=== PATIENT | female | born 1955 | race Caucasian/White ===

== ENCOUNTER 2024-10-19 16:12 | Outpatient (AMB) | payer BC, SELFPAY ==
--- OUTSIDE RECORDS SUMMARY | 2024-10-19 18:46 | XMS_ITS | Patient Health Record ---
Author Organization 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 . . 2-3x/week; Durat ion: 3-4 weeks 06/16/2018 Active OT Refurbishment Refurbish with full length extensions 06/16/2018 Active Myrbetriq 25 MG 1 tablet Orally Once a day Active hydroCHLOROthiazide Active Simvastatin 10 MG 1 tablet in the evening Orally Active metFORMIN HCl Active Vitamin C Active Multivitamin Active Calcium Active Magnesium Active Probiotic Active Fish Oil Active Immunizations Vaccine Route Administration Date Status Comme nts Influenza Unknown 01/03/2018 Administered Social History Tobacco Use: Social History Observation Description Date Details (start date - stop date) Former Smoker NA - NA Tobacco Use/Smoking Question Answer Notes Are you a: former smoker When did you stop smoking? 1988 Additional Findings: Tobacco Non-User Cu rrent non-smoker,Ex-light cigarette smoker (1-9/day) Alcohol Screen Question Answer Notes Did you have a drink containing alcohol in the p ast year? No Points 0 Interpretation Negative Tobacco use other than smoking: Question Answer Notes Are you an other tobacco user? No Problems Problem Type SNOMED Code ICD Code Onset Dates Problem Status W/U Status Risk Notes Problem Neuropathy (124465930) Neuropathy (G62.9) Active confirmed Problem Polyneuropathy due to type 2 diabetes mellitus (007120740) Type 2 diabetes mellitus with polyneuropathy (E11.42) Active confirmed Plan Of Treatment Pending Test Test Name Order Date X ray : Foot, right 3V 06/16/2018 Insurance Providers Payer Name Payer Address Payer Phone Subscriber Number Group Number Insured Name Patient Relationship to Insured Coverage Start Date Coverage End Date [id number] [place] [phone] [id number] Marely Kent Self - patient is the insured Medical (General) History Medical History History ICD Code CAD (Cholesterol) Cancer type II diabetes High blood pressure keloids Chicken pox Bone implants/screws Transfusions Surgical History Surgery Date(Month/Year) bunionectomy 12/25/17 mastectomy 2005 shoulder tear 2014 knee surgery 2014 transflap 2004
== END 2024-10-19 16:13 | disposition home or self-care (01) ==
LOC: HO.HMGAL 16:12
PROVIDERS: PCP Physician Assistant; Visit Provider Registered Nurse Emergency
DX: J30.89 Other allergic rhinitis (principal)
CPT/HCPCS: 95117; 95165

== ENCOUNTER 2024-11-18 15:57 | Outpatient (AMB) | payer BC, SELFPAY | END 2024-11-18 15:58 | disposition home or self-care (01) | LOC: HO.HMGAL 15:57 | PROVIDERS: PCP Physician Assistant; Visit Provider Registered Nurse Emergency | DX: J30.89 Other allergic rhinitis (principal) | CPT/HCPCS: 95117; 95165 ==

== ENCOUNTER 2024-12-07 13:26 | Outpatient (AMB) | payer BC, SELFPAY ==
--- OUTSIDE RECORDS SUMMARY | 2024-12-07 17:05 | XMS_ITS | Patient Health Record ---
[facility] Address [address] [place] [address] Care Team Providers Care Industrial Ecology Technician Name Role Phone Monica Tavares Primary Care Provider Jillian Knight Unavailable [phone] Allergies Allergen (clinical drug ingredient) Drug/Non Drug [...] Status W/U Status Risk Notes Problem Neuropathy (801615624) Neuropathy (G62.9) Active confirmed Problem Polyneuropathy due to type 2 diabetes mellitus (161083137) Type 2 diabetes mellitus with polyneuropathy (E11.42) Active confirmed Plan Of Treatment Pending Test Test Name Order Date X ray : Foot, right 3V 06/16/2018 Insurance Providers Payer Name Payer Address Payer Phone Subscriber Number Group Number Insured Name Patient Relationship to Insured Coverage Start Date Coverage End Date [address] [place] [phone] [id number] Marely Kent Self - patient is the insured Medical (General) History Medical History History ICD Code CAD (Cholesterol) Cancer type II diabetes High blood pressure keloids Chicken pox Bone implants/screws Transfusions Surgical History Surgery Date(Month/Year) bunionectomy 12/25/17 mastectomy 2005 shoulder tear 2014 knee surgery 2014 transflap 2004
== END 2024-12-07 13:27 | disposition home or self-care (01) ==
LOC: HO.HMGAL 13:26
PROVIDERS: PCP Physician Assistant; Visit Provider Registered Nurse Emergency
DX: J30.89 Other allergic rhinitis (principal)
CPT/HCPCS: 95117; 95165

== ENCOUNTER 2024-12-28 16:18 | Outpatient (AMB) | payer BC, SELFPAY ==
--- OUTSIDE RECORDS SUMMARY | 2024-12-29 07:06 | XMS_ITS | Data Portability ---
Author Organization [place] - [facility], [facility] Address [facility] [place] [address] Care Team Providers Care Veneer Measurer Name Role Phone PAULINE LAYTON Primary Care Provider Assessment Encounter Date Assessment Date Assessment LastModified by Organization Details LastModified Time 03/28/2019 03/28/2019 Overview/History : 63 yo female new to and this provider who presents with complain of flu-like symptoms for 1 week. Symptoms include fever, chills, nasal congestion, and cough. Patient was seen by her PCP when symptoms first started and was told her symptoms are due to viral infection; few days later patient wass seen by her ENT doctor and was prescribed cefdinire for sinusitis, she is currently taking this medication; patient was then seen at the local urgent care and tested positive for influenza type B. Patient reports that overall her symptoms are improving but didn't completely resolve; she is seeking evaluation today as she is concerned the her cold might be turning into something else . Patient reports taking tylenol and motrin for fever. Comorbidities: breast CA; diabetes, HTN, HLD, Exam: middle age female, who appears tired but otherwise well, no acute distress, non-toxic appearance; alert and oriented X3 ambulates independently without difficulty; afebrile at the time of evaluation Mucous membranes are pink and moist without lesions; Oropharynx without erythema or exudate. Nasal mucosa is pink and moist; nasal passages are patent bilaterally; ear canals are clear without erythema or discharge bilaterally; TMs are pearly shore, non-bulging, non-erythematous Heart sounds are regular rate and rhythm; no audible murmurs, rubs, or gallops No signs of respiratory distress. Lungs are clear to auscultation in all fileds No edema, erythema or cyanosis of lower extremities DDx considered, but not limited to: diagnosed with Influenza type B and sinusitis X1wk Bacteremia - reports fever and chills; symptoms, however, are improving; will need further evaluation if symptoms persist Pneumonia - unlikely; lungs are clear to auscultation; currently taking Cefdinire Sepsis - unlikely; negative qSOFA Endocarditis - unlikely at this time; but might be considered for evaluation if fever/chills do not resolve within 7-10d Work up/Results: CBC CMP Plan/Discussion: - discussed patient's concerns about her recovery; advised it may take up to 2 weeks to recover from flu and cocurrent bacterial sinusitis; advised rest and proper hydration; continue tylenol/motrin PRN for fever; complete abx as prescribed - will notify about abnormal findings if any noted - follow up with PCP as needed within 3-5 days or sooner if symptoms worsen or do not improve - advised when to seek immediate medical attention/911/ED - patient expressed understanding and agreed to tx plan In order to obtain further information and compare any laboratory results/values, I have accessed patient records on the [facility]. This information was pertinent in my medical decision making today. Time On Scene with Patient: 00:39:10 [email or web address] Not available 03/28/2019 22:58:17 Plan of Treatment Reminders Order Date Submit Date Provider Last Modified By Organization Details Last Modified Time Details Appointments None recorded . Lab CBC w/ auto diff 020 03/28/19 20 [facility] (Centralized Electronic Ordering - All Locations), Patient Can Go To The Location Of Their Choice, [id number] 20:31:01 CMP, serum or plasma 020 03/28/19 20 [facility] (Centralized Electronic Ordering - All Locations), Patient Can Go To The Location Of Their Choice, [id number] 0 19:33:05 Referral None recorded . Procedures None recorded . Surgeries None recorded . Imaging None recorded . Medication Orders None recorded . Patient TargetsNo targets recorded. Patient Instructions Encounter Date Encounter Id Patient Instructions Last Modified By Organization Details Last Modified Time 03/28/2019 [id number] Influenza Discha rge Instructions Basic Information Influenza is a viral infection of the nose, throat and lungs. It usually comes on suddenly. The most common symptoms are chills, headache, fever, sore throat, dry cough, body aches, weakness and fatigue. Occasionally, people will have vomiting and diarrhea. Influenza is spread when droplets from an infected person are coughed or sneezed into the air, allowing healthy persons to breathe in these fine droplets and become infected. A patient with influenza will have millions of flu viruses contaminating their hands and face as well. The influenza virus can live up for 2 days on objects such as door knobs, grocery cart handles, elevator buttons, telephones, table tops etc. It is highly contagious. In addition, symptoms of influenza do not start until 2 days after the virus enters the body, so an infected person is contagious before they know that they are sick. A flu patient remains contagious for 24 hours after fever ends. Since it is a virus, antibiotics do not help. Instructions Medications: -Ibuprofen (or other non steroidal antiinflammatory drugs) and Tylenol are very important to help with the body aches and fever. People with influenza will often run high fevers for 5 days straight. High fevers are a major cause of dehydration in influenza, so trying to control fever is very important. Be sure to carefully read the bottles for the correct dosing (especially in children) instructions. -Nausea medicine may be prescribed: use as directed -Antiviral medicine may be prescribed. It is important to know that although these medicines are advertised to shorten the course of influenza, studies show that they reduce length of symptoms by only about a day in adults and 1 day in children. Your provider will discuss whether this medicine is recommended for you. If it is prescribed, be sure to take the entire course as written. Self Care: -Oral hydration. Drink plenty of fluids to stay hydrated. Fever itself can make you dehydrated so you really need to stay on top of this. Fluids such as broth and gatorade are recommended. -Solid food. You will very likely have a poor appetite for solid food: this is OK and as long as you can continue to take plenty of fluids, do not worry if you do not take solid food for a few days. -Rest. Get plenty of rest. Do not push yourself to do more than your body is telling you as this can make you sicker. -Prevent spread of the influenza. Cover your mouth and nose when you cough and sneeze. Try to maintain a 6 foot distance from others. Consider wearing a surgical mask, especially around family members who may have chronic illnesses. Wash your hands often. Don t leave dirty tissues around the home. Seek Care Immediately if you -develop very rapid breathing or shortness of breath -become pale -pass out -cannot tolerate liquids by mouth -develop chest pain -become confused -develop rash If you have additional concerns or develop a change in your condition between 8am-10pm, please call [facility] at [phone] to help navigate your care. [email or web address] Not available 03/28/2019 17:06:39 Reason for Referral None Reported. Results Created Date Observation Date Name Description Value Unit Range Abnormal Flag Note LastModifiedBy Organization Detail LastModifiedTime 03/28/1903/28/2019 CMP, serum or plasm a glucose 117 mg/dL (70-99 ) high Not Available [facility] (Centralized Electronic Ordering - All Locations) Patient Can Go To The Location Of Their Choice, 03/28/2019 19:33:05 03/28/1903/28/2019 CMP, serum or plasm a BUN 16 mg/dL (8-23) Not Available [facility] (Centralized Electronic Ordering - All Locations) Patient Can Go To The Location Of Their Choice, 03/28/2019 19:33:05 03/28/1903/28/2019 CMP, serum or plasm a creatinine 0.6 mg/dL (0.5-1 .0) Not Available [facility] (Centralized Electronic Ordering - All Locations) Patient Can Go To The Location Of Their Choice, 03/28/2019 19:33:05 03/28/1903/28/2019 CMP, serum or plasm a sodium 141 mmol/ L (133-1 45) Not Available [facility] (Centralized Electronic Ordering - All Locations) Patient Can Go To The Location Of Their Choice, 03/28/2019 19:33:05 03/28/1903/28/2019 CMP, serum or plasm a potassium 3.9 mmol/ L (3.6-5 .2) Not Available [facility] (Centralized Electronic Ordering - All Locations) Patient Can Go To The Location Of Their Choice, 03/28/2019 19:33:05 03/28/1903/28/2019 CMP, serum or plasm a chloride 98 mmol/ L (98-10 7) Not Available [facility] (Centralized Electronic Ordering - All Locations) Patient Can Go To The Location Of Their Choice, 03/28/2019 19:33:03/28/1903/28/2019 CMP, serum or plasm a bicarbonate 25 mmol/ L (22-29 ) Not Available [facility] (Centralized Electronic Ordering - All Locations) Patient Can Go To The Location Of Their Choice, 03/28/2019 19:33:03/28/1903/28/2019 CMP, serum or plasm a anion gap 18 (4-17) high Not Available [facility] (Centralized Electronic Ordering - All Locations) Patient Can Go To The Location Of Their Choice, 03/28/2019 19:33:03/28/1903/28/2019 CMP, serum or plasm a albumin 4.4 gm/dL (3.4-4 .8) Not Available [facility] (Centralized Electronic Ordering - All Locations) Patient Can Go To The Location Of Their Choice, 03/28/2019 19:33:03/28/1903/28/2019 CMP, serum or plasm a calcium 10.3 mg/dL (8.6-1 0.5) VICKY CHAU CALCI UM LEVEL S SHOUL D BE BERNICE CHAU ON A DAY CLINI AMANDO INDIC ATED. Not Available [facility] (Centralized Electronic Ordering - All Locations) Patient Can Go To The Location Of Their Choice, 03/28/2019 19:33:03/28/1903/28/2019 CMP, serum or plasm a bilirubin,to lauren 0.5 mg/dL (0-1.2 ) Not Available [facility] (Centralized Electronic Ordering - All Locations) Patient Can Go To The Location Of Their Choice, 03/28/2019 19:33:03/28/1903/28/2019 CMP, serum or plasm a total protein 6.6 gm/dL (6.2-8 .2) Not Available [facility] (Centralized Electronic Ordering - All Locations) Patient Can Go To The Location Of Their Choice, 03/28/2019 19:33:05 03/28/1903/28/2019 CMP, serum or plasm a Ag ratio 2.0 Not Available [facility] (Centralized Electronic Ordering - All Locations) Patient Can Go To The Location Of Their Choice, 03/28/2019 19:33:05 03/28/1903/28/2019 CMP, serum or plasm a AST 27 U/L (0-32) Not Available [facility] (Centralized Electronic Ordering - All Locations) Patient Can Go To The Location Of Their Choice, 03/28/2019 19:33:05 03/28/19 20 03/28/2019 CMP, serum or plasm a alk phos 98 U/L (35-10 4) Not Available [facility] (Centralized Electronic Ordering - All Locations) Patient Can Go To The Location Of Their Choice, 03/28/2019 19:33:03/28/19 20 03/28/2019 CMP, serum or plasm a ALT 53 U/L (0-33) high Not Available [facility] (Centralized Electronic Ordering - All Locations) Patient Can Go To The Location Of Their Choice, 03/28/2019 19:33:03/28/19 20 03/28/2019 CMP, serum or plasm a est GFR non 98 mL/mi n/1.7 3_M2 Creat inine based estim ated glome rular filtr ation rate (eGFR ) is calcu lated using the Chron ic Kidne y Disea se Epide miolo gy Colla borat ion (CKD- EPI). The CKD-E PI creat inine equat ion has not been valid ated in child joey (<18 years ), pregn ant women or in some racia l or ethni c subgr oups other than Cauca sians and Afric an Ameri cans. Not Available [facility] (Centralized Electronic Ordering - All Locations) Patient Can Go To The Location Of Their Choice, 03/28/2019 19:33:05 03/28/19 20 03/28/2019 CMP, serum or plasm a est GFR 114 mL/mi n/1.7 3_M2 Creat inine based estim ated glome rular filtr ation rate (eGFR ) is calcu lated using the Chron ic Kidne y Disea se Epide miolo gy Colla borat ion (CKD- EPI). The CKD-E PI creat inine equat ion has not been valid ated in child joey (<18 years ), pregn ant women or in some racia l or ethni c subgr oups other than [place] and Afric an Ameri cans. Not Available [facility] (Centralized Electronic Ordering - All Locations) Patient Can Go To The Location Of Their Choice, 03/28/2019 19:33:05 03/28/1903/28/2019 CBC w/ auto diff WBC 11.3 K/mm3 (4.0-1 1.0) high Not Available [facility] (Centralized Electronic Ordering - All Locations) Patient Can Go To The Location Of Their Choice, 03/28/2019 20:31:03/28/1903/28/2019 CBC w/ auto diff RBC 5.31 M/mm3 (4.20- 5.40) Not Available [facility] (Centralized Electronic Ordering - All Locations) Patient Can Go To The Location Of Their Choice, 03/28/2019 20:31:03/28/1903/28/2019 CBC w/ auto diff HGB 15.4 gm/dL (11.7- 15.5) Not Available [facility] (Centralized Electronic Ordering - All Locations) Patient Can Go To The Location Of Their Choice, 03/28/2019 20:31:03/28/1903/28/2019 CBC w/ auto diff HCT 45.4 % (35.7- 45.8) Not Available [facility] (Centralized Electronic Ordering - All Locations) Patient Can Go To The Location Of Their Choice, 03/28/2019 20:31:03/28/1903/28/2019 CBC w/ auto diff MCV 85.5 fL (80.0- 100.0) Not Available [facility] (Centralized Electronic Ordering - All Locations) Patient Can Go To The Location Of Their Choice, 03/28/2019 20:31:03/28/1903/28/2019 CBC w/ auto diff MCH 29.0 pg (27.0- 34.0) Not Available [facility] (Centralized Electronic Ordering - All Locations) Patient Can Go To The Location Of Their Choice, 03/28/2019 20:31:03/28/1903/28/2019 CBC w/ auto diff MCHC 33.9 g/dL (33.0- 37.0) Not Available [facility] (Centralized Electronic Ordering - All Locations) Patient Can Go To The Location Of Their Choice, 03/28/2019 20::03/28/1903/28/2019 CBC w/ auto diff plt 300 K/mm3 (150-4 60) Not Available [facility] (Centralized Electronic Ordering - All Locations) Patient Can Go To The Location Of Their Choice, 03/28/2019 20::03/28/1903/28/2019 CBC w/ auto diff RDW-SD 39.7 fL (<47.0 ) Not Available [facility] (Centralized Electronic Ordering - All Locations) Patient Can Go To The Location Of Their Choice, 03/28/2019 20::03/28/1903/28/2019 CBC w/ auto diff MPV 9.6 fL (9.4-1 2.4) Not Available [facility] (Centralized Electronic Ordering - All Locations) Patient Can Go To The Location Of Their Choice, 03/28/2019 20::03/28/1903/28/2019 CBC w/ auto diff automated NRBC 0.0 #/100 _WBC' s Not Available [facility] (Centralized Electronic Ordering - All Locations) Patient Can Go To The Location Of Their Choice, 03/28/2019 20::03/28/1903/28/2019 CBC w/ auto diff abs. NRBC 0.0 K/mm3 Not Available [facility] (Centralized Electronic Ordering - All Locations) Patient Can Go To The Location Of Their Choice, 03/28/2019 20::03/28/1903/28/2019 CBC w/ auto diff neut # 6.4 K/mm3 (1.3-7 .0) Not Available [facility] (Centralized Electronic Ordering - All Locations) Patient Can Go To The Location Of Their Choice, 03/28/2019 20::03/28/1903/28/2019 CBC w/ auto diff lymph # 3.1 K/mm3 (0.8-3 .1) Not Available [facility] (Centralized Electronic Ordering - All Locations) Patient Can Go To The Location Of Their Choice, 03/28/2019 20::03/28/192020 CBC w/ auto diff mono# 0.9 K/mm3 (0.4-0 .9) Not Available [facility] (Centralized Electronic Ordering - All Locations) Patient Can Go To The Location Of Their Choice, 03/28/2019 20:31:03/28/1903/28/2019 CBC w/ auto diff eo # 0.2 K/mm3 (0.0-0 .4) Not Available [facility] (Centralized Electronic Ordering - All Locations) Patient Can Go To The Location Of Their Choice, 03/28/2019 20:31:03/28/1903/28/2019 CBC w/ auto diff baso # 0.1 K/mm3 (0.0-0 .1) Not Available [facility] (Centralized Electronic Ordering - All Locations) Patient Can Go To The Location Of Their Choice, 03/28/2019 20:31:03/28/1903/28/2019 CBC w/ auto diff abs. imm gran 0.6 K/mm3 Not Available [facility] ([facility] Ordering - All Locations) Patient Can Go To The Location Of Their Choice, 03/28/2019 20:31:03/28/1903/28/2019 CBC w/ auto diff neut 56.9 % (44-76 ) Lavonne jang rmed Not Available [facility] (Centralized Electronic Ordering - All Locations) Patient Can Go To The Location Of Their Choice, 03/28/2019 20::03/28/1903/28/2019 CBC w/ auto diff lymph 27.6 % (15-43 ) Not Available [facility] (Centralized Electronic Ordering - All Locations) Patient Can Go To The Location Of Their Choice, 03/28/2019 20:31:03/28/1903/28/2019 CBC w/ auto diff monocyte 7.8 % (4.5-1 0.5) Not Available [facility] (Centralized Electronic Ordering - All Locations) Patient Can Go To The Location Of Their Choice, 03/28/2019 20:31:03/28/1903/28/2019 CBC w/ auto diff eo 1.9 % (0-6) Not Available [facility] (Centralized Electronic Ordering - All Locations) Patient Can Go To The Location Of Their Choice, [id number] 03/28/2019 20:31:01 03/28/19 20 03/28/2019 CBC w/ auto diff baso 0.7 % (0-2) Not Available [facility] (Centralized Electronic Ordering - All Locations) Patient Can Go To The Location Of Their Choice, [id number] 03/28/2019 20:31:01 03/28/19 20 03/28/2019 CBC w/ auto diff imm gran 5.1 % Not Available [facility] (Centralized Electronic Ordering - All Locations) Patient Can Go To The Location Of Their Choice, [id number] 03/28/2019 20:31:01 Result Notes None recorded. Medical Equipment None Reported. Allergies Allergen ID Allergen Name Allergen Category Reaction Reaction Severity Criticality Documentation Date Start Date Code Code System Note Provider Name and Address Organization Details Recorded Time 52168 Substance with sulfonami de structure and antibacte rial mechanism of action (substanc e) medicatio n Not available Not available Not available 03/28/2019 61583 8003 SNOMED [facility] [address] [place], [address], [place] [facility] 0 16:48:12 Medications Name Sig Start Date Stop Date Status Note LastModified by Organization Details LastModified Time cefdinir active Not Available Not Avai lable Not Available simvastatin active Not Available Not A vailable Not Available lisinopril active Not Available Not Av ailable Not Available metformin active Not Available Not Rosa Maria ilable Not Available Hctz/Reserpine /Hydralazine active Not Available Not Available Not Available Vitals Date Recorded Respiratory rate Heart rate Oxygen saturation Oxygen saturation in Arterial blood by Pulse oximetry Body temperature Systolic And Diastolic Provider Name and Address Organization Details Last Updated DateTime 0 18 /min 92 /min 100 % 100 % 98.7 [degF] 122/78 mm[Hg] Not Available [facility] 0 16:53:50 Social History Question Answer Notes LastModified by Organizat ion Details LastModified Time Tobacco Smoking Status Never Smoker [facility] [address] [place], [address], [place] [facility] 03/28/2019 17:06:45 Do You Have An Advance Directive? No Information not available 03/28/2019 What Is Your Code Status? Full Code Information not available 03/28/2019 Excessive Alcohol Or Drug Use No Information not available 03/28/2019 Sex: Unknown Functional Status None recorded. Mental Status None recorded. Family History Relationship Description Onset Age of this Age Resolved Age Notes LastModified by Organization Details LastModified Time Father Hypertensive disorder [email or web address] Not available 2019 17:07:15 Medical History Condition Response Coronary Artery Disease N Depression N COPD N Diabetes Y Cancer Y Stroke N Asthma N High Cholesterol Y Pulmonary Embolism N Hypertension Y Kidney Disease N Gynecological HistoryNo gynecological history recorded. Obstetrics History GPAL:G 0 P 0 0 0 0 Past Encounters Encounter ID Performer Location Encounter Start Date Encounter Closed Date Diagnosis/Indication Diagnosis SNOMED-CT Code Diagnosis ICD10 Code Diagnosis IMO Codes Diagnosis Note [id number] [facility] [address] [place] [address] 03/28/2019 16:47:01 03/31/2019 12:23:06 Malaise and fatigue 086342004 R53.81 Influenza caused by Influenza B virus 76865721 J10.1 Sinusitis 45105511 J32.9 currently treated with abx Health Concerns Section Related Observation LastModified by Organization Detai ls LastModified Time None Recorded Concern Status LastModified by Organization Details LastModified Time None Recorded Advance Directives Directive N: Payers Insurance Date Sequence Insurance Name Policy Number Policy Rosario Covered Member ID Rosario Member ID Guarantor Name 03/31/2019 1 [facility] (HMO) Marely Yoli [id number] Marely Yoli 03/28/2019 1 *SELF PAY* Marely Yoli [id number] Marely Yoli 03/28/2019 1 [facility] Marely Yoli [id number] Marely Yoli 04/09/2019 1 [facility] [employer] [facility] [id number] Marely Yoli [id number] Marely Yoli 04/09/2019 1 [facility] [id number] Marely Yoli [id number] 1 Marely Yoli 04/08/2019 1 [facility] [id number] Marely Yoli [id number] 1 Marely Kent Notes Date Note Type Note Provider Name and Address Organization Details Recorded Time 03/28/2019 text/html Mrs. Kent is a 63 yo female new to and this provider who presents with complain of flu-like symptoms for 1 week. Symptoms include fever, chills, nasal congestion, and cough. Patient was seen by her PCP when symptoms first started and was told her symptoms are due to viral infection; few days later patient wass seen by her ENT doctor and was prescribed cefdinire for sinusitis, she is currently taking this medication; patient was then seen at the local urgent care and tested positive for influenza type B. Patient reports that overall her symptoms are improving but didn't completely resolve; she is seeking evaluation today as she is concerned the her cold might be turning into something else . Patient reports taking tylenol and motrin for fever. [facility] [address], [place], [address], [place] - [facility] 03/28/2019 22:58:23 OBGyn Episode No OBEpisode recorded.
== END 2024-12-28 16:19 | disposition home or self-care (01) ==
LOC: HO.HMGAL 16:18
PROVIDERS: PCP Physician Assistant; Visit Provider Registered Nurse Emergency
DX: J30.89 Other allergic rhinitis (principal)
CPT/HCPCS: 95117; 95165

== ENCOUNTER 2025-01-25 16:33 | Outpatient (AMB) | payer BC, SELFPAY ==
--- OUTSIDE RECORDS SUMMARY | 2025-01-25 22:40 | XMS_ITS | Patient Health Record ---
Author Organization [facility] Address [address] [place] [address] Care Team Providers Care Research Laboratory Manager Name Role Phone Monica Tavares Primary Care Provider Jillian Knight Unavailable [phone] Allergies Allergen (clinical drug ingredient) Drug/Non Drug [...] Status W/U Status Risk Notes Problem Neuropathy (695025026) Neuropathy (G62.9) Active confirmed Problem Polyneuropathy due to type 2 diabetes mellitus (400607829) Type 2 diabetes mellitus with polyneuropathy (E11.42) Active confirmed Plan Of Treatment Pending Test Test Name Order Date X ray : Foot, right 3V 06/16/2018 Insurance Providers Payer Name Payer Address Payer Phone Subscriber Number Group Number Insured Name Patient Relationship to Insured Coverage Start Date Coverage End Date [id number] [place] [phone] [id number] Marely Kent Self - patient is the insured Medical (General) History Medical History History ICD Code CAD (Cholesterol) Cancer type II diabetes High blood pressure keloids Chicken pox Bone implants/screws Transfusions Surgical History Surgery Date(Month/Year) bunionectomy 12/25/17 mastectomy 2005 shoulder tear 2014 knee surgery 2014 transflap 2004
--- OUTSIDE RECORDS SUMMARY | 2025-01-25 22:40 | XMS_ITS | Data Portability ---
Author Organization [place] - [facility], [facility] Address [facility] [place] [address] Care Team Providers Care Commercial Portfolio Manager Name Role Phone PAULINE LAYTON Primary Care Provider [phone] Assessment Encounter Date Assessment Date Assessment LastModified [...] CBC w/ auto diff 020 03/28/19 20 [place] [facility] (Centralized Electronic Ordering - All Locations), Patient Can Go To The Location Of Their Choice, [id number] 0 20:31:01 CMP, serum or plasma 020 03/28/19 20 [place] [facility] (Centralized Electronic Ordering - All Locations), Patient Can Go To The Location Of Their Choice, [id number] 0 19:33:05 Referral None recorded . Procedures None recorded . Surgeries None recorded . Imaging None recorded . Medication Orders None recorded . Patient TargetsNo targets recorded. Patient Instructions Encounter Date Encounter Id Patient Instructions Last Modified By Organization Details Last Modified Time 03/28/2019 [id number] Influenza Discha rge Instructions Basic Information Influenza [...] condition between 8am-10pm, please call [facility] at [phone] to help navigate your care. marixa Not [...] Go To The Location Of Their Choice, [id number] 03/28/2019 20:31:01 03/28/19 20 03/28/2019 CBC w/ auto diff baso 0.7 % (0-2) Not Available [facility] (Centralized Electronic Ordering - All Locations) Patient Can Go To The Location Of Their Choice, [id number] 03/28/2019 20:31:01 03/28/19 20 03/28/2019 CBC w/ auto diff imm gran 5.1 % Not Available [facility] (Centralized Electronic Ordering - All Locations) Patient Can Go To The Location Of Their Choice, [id number] 03/28/2019 20:31:01 Result Notes None recorded. Medical Equipment None Reported. Allergies Allergen ID Allergen Name Allergen Category Reaction Reaction Severity Criticality Documentation Date Start Date Code Code System Note Provider Name and Address Organization Details Recorded Time 20647 Substance with sulfonami de structure and antibacte rial mechanism of action (substanc e) medicatio n Not available Not available Not available 03/28/2019 [id number] SNOMED SIMRAN GREEN [address] [place], [address], [place] [facility] 0 16:48:12 [...] Recorded Respiratory rate Heart rate Oxygen saturation Body temperature Systolic And Diastolic Provider Name and Address Organization Details Last Updated DateTime 0 18 /min 92 /min 100 % 98.7 [degF] 122/78 mm[Hg] Not Available [facility] 0 16:53:50 Social History Question Answer Notes LastModified by Organizat ion Details LastModified Time Tobacco Smoking Status Never Smoker SIMRAN GREEN [address] [place], [address], [place] [facility] 03/28/2019 17:06:45 Do You [...] available 2019 17:07:15 Medical History Condition Response Diabetes Y Coronary Artery Disease N High Cholesterol Y Pulmonary Embolism N Cancer Y Hypertension Y Stroke N Asthma N COPD N Depression N Kidney Disease N Gynecological HistoryNo gynecological history recorded. Obstetrics History GPAL:G 0 P 0 0 0 0 Past Encounters Encounter ID Performer Location Encounter Start Date Encounter Closed Date Diagnosis/Indication Diagnosis SNOMED-CT Code Diagnosis ICD10 Code Diagnosis IMO Codes Diagnosis Note [id number] SIMRAN GREEN [facility] [address] [place] [address] 03/28/2019 16:47:01 03/31/2019 12:23:06 Malaise and fatigue 365198798 R53.81 Influenza caused by Influenza B virus 24694350 J10.1 Sinusitis 83674413 J32.9 currently treated with abx Health Concerns Section Related Observation LastModified by Organization Detai ls LastModified Time None Recorded Concern Status LastModified by Organization Details LastModified Time None Recorded Advance Directives Directive N: Payers Insurance Date Sequence Insurance Name Policy Number Policy Rosario Covered Member ID Rosario Member ID Guarantor Name 03/31/2019 1 [employer] (HMO) Marely Yoli [id number] Marely Yoli 03/28/2019 1 *SELF PAY* Marely Yoli [id number] Marely Yoli 03/28/2019 1 [facility] Marely Yoli [id number] Marely Yoli 04/09/2019 1 [email or web address] [employer] [facility] [id number] Marely Yoli [id number] Marely Yoli 04/09/2019 1 [facility] [id number] Marely Yoli [id number] Marely Yoli 04/08/2019 1 [facility] [id number] Marely Yoli [id number] Marely Yoli Notes Date Note Type Note Provider Name [...] for fever. SIMRAN GREEN [address], [place], [address], [place] [facility] 03/28/2019 22:58:23 OBGyn Episode No OBEpisode recorded.
== END 2025-01-25 16:33 | disposition home or self-care (01) ==
LOC: HO.HMGAL 16:33
PROVIDERS: PCP Physician Assistant; Visit Provider Registered Nurse Emergency
DX: J30.89 Other allergic rhinitis (principal)
CPT/HCPCS: 95117; 95165